=== PATIENT | male | born 1940 | race Caucasian/White ===

== ENCOUNTER 2021-10-02 14:01 | Emergency (ER) | payer OTHER ==
[~2021-10-02] VITALS: Ht 177.8 cm; Wt 99.3 kg
[2021-10-02] MEDS ORDERED: TYLENOL325 M1 PO (14:05)
[2021-10-02] MEDS ORDERED: ASA81BEC PO (14:06)
[2021-10-02] MEDS ORDERED: ALLOPURINOL 10100 M3 PO (14:06)
[2021-10-02] MEDS ORDERED: LIPITOR 20 MG T20 M1 PO (14:06)
[2021-10-02] MEDS ORDERED: VITAMIN D310 MC2 PO (14:07)
[2021-10-02] MEDS ORDERED: COLESTID1 GM PO (14:07)
[2021-10-02] MEDS ORDERED: CALCIUM + D3 E1 EACH PO (14:07)
[2021-10-02] MEDS ORDERED: DICYCLOMINE HCL20 MG PO (14:08)
[2021-10-02] MEDS ORDERED: FISH OIL 1,0001 EAC9 PO (14:09)
[2021-10-02] MEDS ORDERED: EYE DROPS15 M1 (14:09)
[2021-10-02] MEDS ORDERED: FUROSEMIDE 20 M20 MG PO (14:09)
[2021-10-02] MEDS ORDERED: FLOMAX0.4 MG PO (14:09)
[2021-10-02] MEDS ORDERED: NEURONTIN 300M300 M2 PO (14:10)
[2021-10-02] MEDS ORDERED: TOPROL XL25 MG PO (14:11)
[2021-10-02] MEDS ORDERED: MULTIPLE VITAM1 EAC2 PO (14:11)
[2021-10-02] MEDS ORDERED: DESYREL150 MG PO (14:12)
[2021-10-02] MEDS ORDERED: SERTRALINE HCL100 MG PO (14:12)
[2021-10-02] MEDS ORDERED: NORMAL SALINE FL5 ML (14:12)
[2021-10-02] MEDS ORDERED: VANCOCIN 125 M125 M1 PO (14:13)
[2021-10-02 14:43] VITALS: BP 129/52
== END 2021-10-02 16:23 | disposition home or self-care (01) ==
LOC: M.ERS 14:01
DX: R33.9 Retention of urine, unspecified (principal); Z79.899 Other long term (current) drug therapy; Z88.8 Allergy status to other drugs, medicaments and biological substances